=== PATIENT | male | born 1985 | race Caucasian/White ===

== ENCOUNTER 2019-11-03 23:08 | Emergency (ER) | payer MEDICAID ==
[~2019-11-03] VITALS: Ht 180.3 cm; Wt 68.2 kg
[~2019-11-03 23:08] MED LIST: BUPR150T8 PO; FAMO-1 PO; HYDR-4383 PO; LIB25C PO; LITH300C43 PO; ONDA8TAB9 PO; PANT40TA39 PO; RISP2TAB97 PO; ZOF4T PO
[2019-11-04] MEDS ORDERED: fentaNYL/PF 50MCG/1 ML 2ML syringe IV ONE (00:15)
[2019-11-04] MEDS ORDERED: etomidate 2mg/ml inj. IV ONE ×2 (00:15→01:55)
[2019-11-04] MEDS ORDERED: diazepam inj 5 MG/ML inj. IV ONE ×2 (00:15→01:55)
[2019-11-04] MEDS ORDERED: ondansetron/PF 4mg/2ml inj IV ONE ×2 (00:15→01:45)
[2019-11-04] MEDS ORDERED: HYDR-3965 PO (01:30)
[2019-11-04] MEDS ORDERED: ONDA4TAB6 PO (01:30)
[2019-11-04 03:02] VITALS: BP 109/68
== END 2019-11-04 03:05 | disposition home or self-care (01) ==
LOC: ER 23:09
DX: S43.004A Unspecified dislocation of right shoulder joint, initial encounter (principal); M25.511 Pain in right shoulder; K21.9 Gastro-esophageal reflux disease without esophagitis; F41.9 Anxiety disorder, unspecified; F31.9 Bipolar disorder, unspecified; F20.9 Schizophrenia, unspecified; F12.90 Cannabis use, unspecified, uncomplicated; F15.90 Other stimulant use, unspecified, uncomplicated; Z86.19 Personal history of other infectious and parasitic diseases; Z72.89 Other problems related to lifestyle; Z56.0 Unemployment, unspecified; Z59.0 Homelessness; Z88.5 Allergy status to narcotic agent; Z79.899 Other long term (current) drug therapy; X58.XXXA Exposure to other specified factors, initial encounter; Y93.89 Activity, other specified; Y92.89 Other specified places as the place of occurrence of the external cause; Y99.8 Other external cause status
CPT/HCPCS: 23650; 73020; 73030; 94760; 99152; 99285; J2405; J3010; J3360; 96374; 96375; 96376; 99284

== ENCOUNTER 2020-02-01 19:47 | Emergency (ER) | payer MEDICAID ==
[~2020-02-01] VITALS: Ht 180.3 cm; Wt 68.2 kg
[~2020-02-01 19:47] MED LIST changes: +ONDA4TAB6 PO
[2020-02-01] MEDS ORDERED: ketamine 50 mg/ml 10ml vial IM ONE (21:20)
[2020-02-01] MEDS ORDERED: HYDROcodone/acetaminophen 5mg/325mg tablet PO ONE (21:20)
[2020-02-01] MEDS ORDERED: propofol 10mg/ml 20ml vial IV ONE (21:30)
[2020-02-01 23:29] VITALS: BP 128/80
== END 2020-02-01 23:26 | disposition home or self-care (01) ==
LOC: ER 19:48
DX: S43.084A Other dislocation of right shoulder joint, initial encounter (principal); M25.511 Pain in right shoulder; K21.9 Gastro-esophageal reflux disease without esophagitis; F41.9 Anxiety disorder, unspecified; F31.9 Bipolar disorder, unspecified; F20.9 Schizophrenia, unspecified; F12.90 Cannabis use, unspecified, uncomplicated; F15.90 Other stimulant use, unspecified, uncomplicated; Z86.19 Personal history of other infectious and parasitic diseases; Z98.890 Other specified postprocedural states; Z72.89 Other problems related to lifestyle; Z56.0 Unemployment, unspecified; Z59.0 Homelessness; Z79.899 Other long term (current) drug therapy; W18.39XA Other fall on same level, initial encounter; Y93.89 Activity, other specified; Y92.89 Other specified places as the place of occurrence of the external cause; Y99.8 Other external cause status
CPT/HCPCS: 23650; 73020; 73030; 94760; 99152; 99285

== ENCOUNTER 2020-03-12 09:15 | Emergency (ER) | payer MEDICAID ==
[~2020-03-12] VITALS: Ht 180.3 cm; Wt 63.5 kg
[2020-03-12] MEDS ORDERED: ondansetron 4mg rapidly disintigrating tab PO ONE ×2 (09:50→13:40)
[2020-03-12 10:03] LABS: BASOPHILS % (AUTO) 0.5 % (0-1); EOSINOPHILS # (AUTO) 0.1 X10'3 (0-0.9); EOSINOPHILS % (AUTO) 0.6 % (0-6); HEMATOCRIT 52.1 % (42.0-52.0); HEMOGLOBIN 17.7 g/dl (14.0-17.9); LYMPHOCYTES # (AUTO) 1.3 X10'3 (1.1-4.8); LYMPHOCYTES % (AUTO) 13.9 % (21-51); MEAN CORPUSCULAR HEMOGLOBIN 31.7 PG (27.0-31.0); MEAN CORPUSCULAR VOLUME 93.2 FL (78-98); MEAN PLATELET VOLUME 8.7 FL (7.4-10.4); MONOCYTES # (AUTO) 0.8 X10'3 (0-0.9); MONOCYTES % (AUTO) 8.6 % (2-12); NEUTROPHILS # (AUTO) 7.1 X10'3 (1.8-7.7); NEUTROPHILS % (AUTO) 76.4 % (42-75); PLATELET COUNT 252 X10'3 (140-440); RED CELL DISTRIBUTION WIDTH 13.9 % (11.5-14.5); WHITE BLOOD COUNT 9.3 X10'3 (4.5-11.0)
[2020-03-12 10:17] LABS: ALANINE AMINOTRANSFERASE 150 U/L (12-78); ALBUMIN 4.3 G/DL (3.4-5.0); ALKALINE PHOSPHATASE 71 IU/L (46-116); ANION GAP 6 (8-16); ASPARTATE AMINO TRANSFERASE 59 U/L (10-37); BILIRUBIN,TOTAL 0.9 MG/DL (0.1-1.0); BLOOD UREA NITROGEN 10 MG/DL (7-18); BUN/CREATININE RATIO 9.4 (5.4-32.0); CALCIUM 10.2 MG/DL (8.5-10.1); CHLORIDE 100 MMOL/L (99-107); CREATININE 1.06 MG/DL (0.60-1.10); GLUCOSE 122 MG/DL (70-104); LIPASE 76 U/L (73-393); SODIUM 141 MMOL/L (135-145); TOTAL CARBON DIOXIDE 35.4 MMOL/L (24-32); TOTAL PROTEIN 8.4 G/DL (6.4-8.2); eGFR 79 ML/MIN
[2020-03-12 10:20] LABS: POTASSIUM 4.5 MMOL/L (3.5-5.1)
[2020-03-12] MEDS ORDERED: HYDROcodone/acetaminophen 5mg/325mg tablet PO ONE (11:20)
[2020-03-12 12:38] LABS: CLARITY,URINE CLOUDY (Clear); COLOR,URINE YELLOW (Yellow); GLUCOSE, URINE NEGATIVE (Neg); KETONES,URINE TRACE mg/dl (Neg); LEUKOCYTE ESTERASE ,URINE TRACE (Neg); NITRITES, URINE NEGATIVE (Neg); OCCULT BLOOD,URINE NEGATIVE (Neg); PH,URINE >=9.0 (4.8-8.0); PROTEIN,URINE TRACE mg/dl (Neg)
[2020-03-12 12:46] LABS: UA COLLECTION TYPE CLN CATCH MIDSTREAM
[2020-03-12 12:48] LABS: AMORPHOUS PHOSPHATES 3+
[2020-03-12 12:49] LABS: RBC,URINE NONE SEEN /HPF (0-2); WBC,URINE 0-4 /HPF (0-4)
[2020-03-12 12:50] LABS: BACTERIA,URINE NONE SEEN /HPF (Neg); MUCUS STRANDS NONE SEEN /LPF (Neg); SQUAMOUS EPITHELIAL CELL,UR FEW /LPF (FEW)
[2020-03-12] MEDS ORDERED: ONDA4TAB6 PO (12:50)
[2020-03-12 13:42] VITALS: BP 131/91
== END 2020-03-12 13:44 | disposition home or self-care (01) ==
LOC: ER 09:16
DX: A05.9 Bacterial foodborne intoxication, unspecified (principal); R10.819 Abdominal tenderness, unspecified site; K21.9 Gastro-esophageal reflux disease without esophagitis; F31.9 Bipolar disorder, unspecified; F20.9 Schizophrenia, unspecified; F12.90 Cannabis use, unspecified, uncomplicated; F15.90 Other stimulant use, unspecified, uncomplicated; F11.90 Opioid use, unspecified, uncomplicated; Z59.0 Homelessness; Z79.899 Other long term (current) drug therapy
CPT/HCPCS: 36415; 80053; 81001; 83690; 85025; 87088; 99284

== ENCOUNTER 2022-08-25 15:02 | Emergency (ER) | payer MEDICAID ==
[~2022-08-25] VITALS: Ht 180.3 cm; Wt 86.4 kg
[2022-08-25] MEDS ORDERED: TETanus/Pertussis (Acell)/Diphther VAC/PF (Tdap-Adult) 0.5ml syringe IMVAC ONE (16:15)
[2022-08-25] MEDS ORDERED: LIDOCAINE 2%/EPI 1:100,000 inj. Multi-dose 20 ML VIAL IJ ONE (16:15)
[2022-08-25 17:13] VITALS: BP 122/77
== END 2022-08-25 17:20 | disposition home or self-care (01) ==
LOC: ER 15:02
DX: S61.511A Laceration without foreign body of right wrist, initial encounter (principal); K21.9 Gastro-esophageal reflux disease without esophagitis; F31.9 Bipolar disorder, unspecified; F12.90 Cannabis use, unspecified, uncomplicated; F15.20 Other stimulant dependence, uncomplicated; F14.10 Cocaine abuse, uncomplicated; X58.XXXA Exposure to other specified factors, initial encounter; Y93.89 Activity, other specified; Y92.89 Other specified places as the place of occurrence of the external cause; Y99.8 Other external cause status; Z59.00 Homelessness unspecified; Z56.0 Unemployment, unspecified
CPT/HCPCS: 12001; 90471; 90715; 99283; A6449

== ENCOUNTER 2022-12-25 03:34 | Emergency (ER) | payer MEDICAID, OTHER ==
[~2022-12-25] VITALS: Ht 180.3 cm; Wt 86.4 kg
[2022-12-25 03:41] VITALS: TEMP 98.2
[2022-12-25] MEDS ORDERED: ibuprofen tablet 400 MG TABLET PO ONE (03:45)
--- NOTE | 2022-12-25 03:48 | NUR ---
he is holding right arm up with left arm, his right shoulder is dropped. CMS intact.
[2022-12-25] MEDS ORDERED: propofol 10mg/ml 20ml vial IV ONE (04:25)
[2022-12-25 05:35] VITALS: BP 109/88; PULSE 54; RESP 14; O2SAT 97
[2022-12-25] MEDS ORDERED: NO HOME MEDS (22:27)
== END 2022-12-25 05:47 ==
LOC: ER 03:35
DX: S43.084A Other dislocation of right shoulder joint, initial encounter (principal); K21.9 Gastro-esophageal reflux disease without esophagitis; F31.9 Bipolar disorder, unspecified; F20.9 Schizophrenia, unspecified; F12.10 Cannabis abuse, uncomplicated; F15.10 Other stimulant abuse, uncomplicated; F11.10 Opioid abuse, uncomplicated; X58.XXXA Exposure to other specified factors, initial encounter; Y93.89 Activity, other specified; Y92.89 Other specified places as the place of occurrence of the external cause; Y99.8 Other external cause status
CPT/HCPCS: 23650; 73020; 73030; 99152; 99285; J7030; 94760; A4620

== ENCOUNTER 2022-12-25 14:45 | Emergency (ER) | payer OTHER ==
[~2022-12-25] VITALS: Ht 180.3 cm; Wt 88.0 kg
[2022-12-25] MEDS ORDERED: propofol 10mg/ml 20ml vial IV ONE ×2 (15:40→21:45)
[2022-12-25] MEDS ORDERED: oxyCODONE/APAP 10/325mg tablet PO ONE (17:00)
[2022-12-25] MEDS ORDERED: fentaNYL/PF 50MCG/1 ML 2ML syringe IV ONE (20:40)
[2022-12-25] MEDS ORDERED: fentaNYL/PF 50MCG/1 ML 2ML syringe IV STA (20:55)
--- NOTE | 2022-12-25 22:09 | NUR ---
PT ACUITY INCREASED TO LEVEL 3 FROM LEVEL 4, DUE TO NEED FOR MODERATE SEDATION.
[2022-12-25] MEDS ORDERED: NO HOME MEDS (22:27)
[2022-12-25 22:50] VITALS: BP_DIAS 93; RESP 17; O2SAT 97
[2022-12-25 23:02] VITALS: PULSE 55; TEMP 97.2
== END 2022-12-25 22:50 ==
LOC: ER 14:46
DX: S43.084A Other dislocation of right shoulder joint, initial encounter (principal); X58.XXXA Exposure to other specified factors, initial encounter; Y93.89 Activity, other specified; Y92.89 Other specified places as the place of occurrence of the external cause; Y99.8 Other external cause status
CPT/HCPCS: 23650; 73020; 73030; 96374; 99285; J3010; J7030; 94760; A4565